=== PATIENT | male | born 1965 | race Caucasian/White ===

== ENCOUNTER 2017-11-20 11:49 | Inpatient (IN) ==
--- NOTE | 2017-11-20 08:06 | Physician Discharge Referral ---
Home Health/Hosp Referral Info Transfer to: Home Health Attending Provider: Dr Napoles - Diagnosis (1) Arthritis of left shoulder region Priority: Primary Status: Chronic (2) HTN (hypertension) Priority: Secondary Status: Chronic (3) Diabetes mellitus Priority: Secondary Status: Chronic (4) SVT (supraventricular tachycardia) Priority: Secondary Status: Chronic (5) Status post replacement of left shoulder joint Priority: Primary (ECLIPSE) Status: Acute - Respiratory Orders Smoking Cessation: Smoking cessation has been advised. For more information, call the [employer] Tobacco Quit Line at 6-340-YDJH-NOW. - Dressing/Wound Care Site: LEFT SHOULDER Type of Dressing/Treatments w/Frequency: Opsite placed. Keep dressing intact until first follow up appointment. If > 50% saturated, notify office, remove dressing and place appropriate dressing back in place. Leave Zipline intact. Opsite dressing is water resistant, not water- proof. OK to shower, but do not get dressing wet. - Diet/Nutrition Diet/Nutrition Orders: Regular - Activity Activity Orders: Up ad gardenia, Ambulate, Chair - Services Needed Following services are medically necessary services: Nursing, Home Health Aide, Physical Therapy, Occupational Therapy Home Care Orders: PT/OT elbow, wrist, hand and ADL retraining ONLY - NO SHOULDER MOTION. NWB to affected upper extremity. Follow Shoulder Precautions x 6 weeks. Stay in brace. ICE extremity frequently throughout the day. - Transfer Medications Prescriptions: OxyCODONE Immed Rel [Roxicodone 5 MG] 5 mg PO Q4HR PRN 5 Days #20 tablet PRN Reason: Pain Home Medications: Glimepiride [Amaryl] 2 mg PO BID 03/11/16 [History] Metformin HCl [Fortamet] 500 mg PO DAILY 03/11/16 [History] Fenofibrate Nanocrystallized [Triglide] 160 mg PO DAILY 07/20/17 [History] Lisinopril-HCTZ 20-12.5 [Prinzide 20-12.5] 1 tab PO DAILY 07/20/17 [History] OxyCODONE Immed Rel [Roxicodone 5 MG] 5 mg PO Q4HR PRN 5 Days #20 tablet [Rx] Allergies/Adverse Reactions: 3 Allergy/AdvReac Type Severity Reaction Status Date / Time No Known Allergies Allergy Verified 11/20/17 13:00 Certification: Further, I certify that my clinical findings support that this patient is homebound (i.e. absences from home require considerable and taxing effort and are for medical reasons or pentecostal services or infrequently or short duration when for other reasons) because: Homebound Reason: Post-surgery restriction and or conditions limit ability to leave home Attestation: My signature below is to certify that this patient is under my care and that I, or nurse practitioner, or a physician real estate administrative assistant working with me, has a face-to- face encounter with this patient.
--- NOTE | 2017-11-20 11:58 | History & Physical Report ---
Date of Encounter: 11/20/17 Time of Encounter: 11:58 24 Hour HP Update - Instructions Instructions: If the History and Physical is less than 30 days old and was completed prior to A.M. admission and or procedure and has NOT been updated on calendar day of procedure please complete this update prior to performing procedure. - Update Patient reports changes in Medical Condition: No Changes in examination, assessment, or condition: No Changes in Medication: No Preop tests/diagnostics Reviewed: Yes Surgery Remains Indicated: Yes Consent for Planned Operative Procedure(s) Verified: Yes - Pre-Operative Checklist Preoperative Checklist Indicated: No Prophylactic Antibiotic Ordered: Yes Is VTE Prophylaxis Indicated?: Yes
[2017-11-20] MEDS ORDERED: *HR* OxyCODONE Immed Rel 5 MG TABLET PO PRN ×3 (12:28→17:42)
[2017-11-20] MEDS ORDERED: *HR* Promethazine 25 MG/ML VIAL IVP PRN (12:28)
[2017-11-20] MEDS ORDERED: MORPHINE SUL Oral CONC 10 MG/0.5 ML ORAL.SYG SL PRN (12:28)
[2017-11-20] MEDS ORDERED: *HR* Labetalol 20 MG/4 ML SYRINGE IVP PRN (12:28)
[2017-11-20] MEDS ORDERED: CeFAZolin Syr 2,000MG/20 ML 2,000 MG/20 ML SYRINGE IVPB ONE (12:32)
[2017-11-20] MEDS ORDERED: Plasma-Lyte A (PH 7.4) 1,000 ML IVC SCH (12:45)
--- NOTE | 2017-11-20 12:50 | Anesthesia Evaluation PreOp ---
Date of Encounter: 11/20/17 Time of Encounter: 12:48 - Past History Planned Operation: Left Total Shoulder Cardiac History: HTN, Arrhythmia (Cardiac Ablation for SVT) Pulmonary History: Denies Any Significant HX IRONER MACHINE History: Denies Any Significant HX Other Medical History: Diabetes Type II Anesthesia History: No Prior Anesthetic Complications Alcohol Use: none Drug use: none Medications and Allergies Diltiazem CD (24hr) [Cardizem CD] 120 mg PO DAILY 03/11/16 [History] Glimepiride [Amaryl] 2 mg PO BID 03/11/16 [History] Metformin HCl [Fortamet] 500 mg PO DAILY 03/11/16 [History] Fenofibrate Nanocrystallized [Triglide] 160 mg PO DAILY 07/20/17 [History] Lisinopril-HCTZ 20-12.5 [Prinzide 20-12.5] 1 tab PO DAILY 07/20/17 [History] Multivit-Min/Folic/Vit K/Lycop [Hm Mens 50+ Advanced One Daily] 1 tab PO DAILY 07/20/17 [History] 3 Allergy/AdvReac Type Severity Reaction Status Date / Time No Known Allergies Allergy Verified 07/20/17 10:56 - Meds/Allergy Pre-op Review Medications Reviewed: Yes Allergies Reviewed: Yes Beta Blockers on Current Med List: No Anesthesia Results - Labs Laboratory Tests 03/06/16 11/18/17 11/18/17 12:55 15:38 15:38 WBC 8.4 Hgb 14.1 Hct 44.0 Plt Count 273 INR 1.1 Sodium 134 L Potassium 4.4 Chloride 101 Carbon Dioxide 27 BUN 19 Creatinine 1.49 H Anesthesia Exam O2 Sat Height 1.85 m Height 1.85 m Weight 116.573 kg Weight 116.573 kg O2 Sat by Pulse Oximetry 98 Vital Signs Temp Pulse Resp BP Pulse Ox 98.1 F 81 18 118/81 98 11/20/17 12:13 11/20/17 12:13 11/20/17 12:13 11/20/17 12:13 11/20/17 12:13 NPO (# of Hours): > 8 Hrs Pain Scale: 0 Pain Scale Used: Numeric (1 - 10) - HEENT Pupil (Motor): Pupils equal, EOMI Mallampati: II Teeth: Normal Oral Opening: Greater than 3 - IRONER MACHINE LOC: Oriented IRONER MACHINE Motor: Normal RUE, Normal LUE, Normal RLE, Normal LLE, Normal Face IRONER MACHINE Sensory: Normal: RUE, LUE, RLE, LLE, Face - Cardiac Rhythm: Regular Murmur: None JVD: No Carotid Bruit: No - Pulmonary Breath Sounds: bilateral Clear Respiratory Effort: Symmetrical Anesthesia Assess/Plan ASA Score: 2 Modified Teo Scale for Level of Consciousness: Cooperative, oriented, and tranquil Anesthetic Plan: General, Regional Autologous Blood: Yes Monitoring Plan: Standard Monitors Recovery Plan: PACU
[2017-11-20] MEDS ORDERED: Albuterol 2.5 MG/3 ML NEBULIZER IH ONE (12:51)
[2017-11-20] MEDS ORDERED: Albuterol 2.5 MG/3 ML NEBULIZER ONE (12:52)
[2017-11-20] MEDS ORDERED: Bupivacaine/Clonidine Syringe 1 EACH SYRINGE ONE (13:13)
[2017-11-20] MEDS ORDERED: ROPIVACAINE HCL/PF 0.5% 30 ML VIAL ONE (13:13)
[2017-11-20] MEDS ORDERED: *HR* FentaNYL (PF) 100 MCG/2 ML VIAL ONE (13:15)
[2017-11-20] MEDS ORDERED: *HR* Propofol 200 MG/20 ML VIAL IVP ONE (13:16)
[2017-11-20] MEDS ORDERED: Lidocaine -MPF 2% 2 ML VIAL ONE (13:16)
[2017-11-20] MEDS ORDERED: *HR* Midazolam HCl 2 MG/2 ML VIAL ONE (13:16)
--- NOTE | 2017-11-20 13:31 | Discharge Summary ---
Orders not resulted at time of discharge: Pending orders 11/20/17 US anesthesia pain block [US] Routine 11/20/17 11:58 XR shoulder complete LT [XR] Routine Hemoglobin and Hematocrit [HEME] Routine Date of Encounter: 11/20/17 Time of Encounter: 17:55 - Discharge Diagnosis (1) Obesity (BMI 30.0-34.9) Priority: Secondary Status: Chronic (2) SVT (supraventricular tachycardia) Priority: Secondary Status: Chronic (3) Arthritis of left shoulder region Priority: Primary Status: Chronic (4) HTN (hypertension) Priority: Secondary Status: Chronic Qualifiers: Hypertension type: unspecified Qualified Code(s): I10 - Essential (primary ) hypertension (5) Diabetes mellitus Priority: Secondary Status: Chronic Qualifiers: Diabetes mellitus type: type 2 Diabetes mellitus chcf insulin use: unspecified termite inspector insulin use status Diabetes mellitus complication status : with unspecified complications Qualified Code(s): E11.8 - Type 2 diabetes mellitus with unspecified complications (6) Status post replacement of left shoulder joint Priority: Primary Status: Acute - Hospital Course Hospital course: Mr. Hickman is a 52 year old male Status post left total shoulder discharged home same day - Time Spent with Patient Total time spent providing and/or coordinating discharge services: - Discharge Medications Home Medications: Glimepiride [Amaryl] 2 mg PO BID 03/11/16 [History] Metformin HCl [Fortamet] 500 mg PO DAILY 03/11/16 [History] Fenofibrate Nanocrystallized [Triglide] 160 mg PO DAILY 07/20/17 [History] Lisinopril-HCTZ 20-12.5 [Prinzide 20-12.5] 1 tab PO DAILY 07/20/17 [History] OxyCODONE Immed Rel [Roxicodone 5 MG] 5 mg PO Q4HR PRN 5 Days #20 tablet [Rx] Allergies/Adverse Reactions: 3 Allergy/AdvReac Type Severity Reaction Status Date / Time No Known Allergies Allergy Verified 11/20/17 13:00 Primary care physician: Cristóbal Land - Patient Status Disposition: Home, Self-Care Condition: Good Functional capacity at discharge: independent ambulation Overall status at discharge: patient is progressing back to baseline - Discharge Instructions Follow Up With: Cristóbal Land MD [Primary Care Provider] -
--- NOTE | 2017-11-20 13:36 | Anesthesia Procedures ---
Date of Encounter: 11/20/17 Time of Encounter: 13:23 Procedures: Anesthesia - Nerve Block Procedure Date: 11/20/17 Time: 13:23 Allergies/Adv Reactions: None Pre-op Diagnosis: Left shoulder arthritis Surgical Procedure: Left total shoulder Checklist: Correct Patient Identifier, Correct procedure, History checked Correct side: Left Blood Thinner: No Monitor Applied: EKG, BP, Pulse Oximetry Supplemental Oxygen via Nasal Cannula (L/min): 2 Sedation: Versed (mg): 2 Sedation: Fentanyl (mcg): 100 Indication: Post Op Analgesia Pre-op Neuro Deficits: No Block Type: Supraclavicular, Other (intercostobrachial, intermediate cervical plexus) Catheter placed: No Sterile Technique: Yes Ultrasound used: Yes Anatomy identified: Yes Visual spread of Local: Yes Neuro Stimulation: No Blood on Needle Aspiration: No Smooth Injection of Local: Yes Pain with Injection of Local: No Prep: Chlorhexadine Needle: 22 x 50 mm Stimuplex Local: 0.25% Bupivicaine w/Clonidine 20 mcg/cc (10ml), Ropivacaine (30ml) Number of Attempts: 1 Complications: None/effective block Vitals: Vital Signs/O2 Sat/Glucose, Most Recent Temp Pulse Resp BP Pulse Ox 98.1 F 94 18 136/98 98 11/20/17 12:13 11/20/17 13:31 11/20/17 13:31 11/20/17 13:31 11/20/17 13:31 Blood Glucose* 111
[2017-11-20] MEDS ORDERED: Dexamethasone 4 MG/ML VIAL ONE (14:27)
[2017-11-20] MEDS ORDERED: Ondansetron 4 MG/2 ML VIAL ONE (14:27)
[2017-11-20] MEDS ORDERED: *HR* PHENYLEPHRINE 1,000 MCG/10 ML SYRINGE IVP ONE (14:51)
--- NOTE | 2017-11-20 15:51 | Orthopedic Operative Note ---
Date of procedure: 11/20/17 Pre-op diagnosis: Left shoulder arthritis Post-op diagnosis: other (Posterior instability) Procedure: Procedure: Left Total Shoulder Replacement Estimated blood loss: 200 cc Hardware:Arthrex eclipse glenoid: Extra large keeled glenoid humeral head 53 x 22 eclipse Arthrex, 40 mm large Hollow screw, 53 mm trunnion 4 Arthrex 4.75 swivel lock suture anchors Exam Under anesthesia: Patient with full motion no gross instability. Procedural Notes: Patient noted to have grade 4 changes humeral head and glenoid socket. Intraoperative patient had posterior instability after implantation. Patient had appropriate size head. Posterior capsular sutures were placed to help tighten the posterior aspect. Operative procedure: The patient was brought to the operating room and placed on the operating room table. After general anesthesia was administered the operative shoulder was examined. Findings were noted. The patient was placed in the modified beachchair position. All pressure points were padded appropriately. And the head was stabilized in the neutral position. The operative extremity was prepped and draped in the sterile surgical fashion. The patient received IV antibiotics prior to skin incision. A standard deltopectoral approach was made to the operative shoulder. Incision was made to the skin and subcutaneous tissue,hemo stasis was obtained with Bovie cautery. Using careful blunt dissection the cephalic vein was identified and mobilized medially. The deltopectoral interval was developed and the clavipectoral fascia was incised. The subscap was released off the lesser tuberosity and tagged with #2 FiberWire suture. The humerus was dislocated osteophytes were present were removed and the humeral cut was made along the anatomic neck. Patient noted to have grade 4 arthritic changes humeral head. Anterior and posterior Bankart retractors were placed to expose the glenoid. Glenoid noted to have grade 4 arthritic changes. The glenoid guide was seated and the centering hole was made. It was reamed with the appropriate reamer. The finishing guide was seated superior and inferior drill holes were placed. Patient punch was seated trial was seated had good fit and fixation. The large keeled glenoid component was cemented in place held with digital pressure until cemented hardened. Component had good fit and fixation. The humerus was prepared with the sizer followed by the guidepin to a size 40 trial trunnion was seated had had good motion posterior instability. Patient felt to have appropriate version as well as appropriate head size. #2 FiberWire sutures were used to tighten up the posterior capsule this provided improved stability. The real trunnion was seated and locked in place with the 40 mm Hollow screw. We will have was seated and secured patient good motion and stability. 4 #2 fiber tape sutures were placed in the subscap in a Seb- Gilberto fashion. These were used to repair the subscap to the lesser tuberosity with 4 4.75 swivel lock suture anchors. The rotator interval was closed in a [id number] #1 Vicryl suture. Deep tissue was irrigated and closed. The deltopectoral interval was closed with a running #1 PDS suture, subcutaneous tissue was irrigated and closed with 0 PDS suture, the skin was closed with Dermabond. The patient was placed in a sterile dressing, abduction brace and extubated. The patient was then transferred to the recovery room in stable condition. Anesthesia: SCOOTER Surgeon: Jacky Napoles Was there an activity assistant present: No Estimated blood loss (cc): 200 Condition: stable Disposition: PACU
[2017-11-20 16:38] LABS: Hematocrit 39.4 % (37.5-50.1); Hemoglobin 13.1 g/dL (12.9-16.9)
--- NOTE | 2017-11-20 16:52 | Anesthesia Evaluation Post Op ---
Date of Encounter: 11/20/17 Time of Encounter: 16:51 - Vital Signs Vital Signs: Vital Signs/O2 Sat, Most Current Temp Pulse Resp BP Pulse Ox 97.0 F L 75 119 119/83 96 11/20/17 16:40 11/20/17 16:40 11/20/17 16:40 11/20/17 16:40 11/20/17 16:40 - Lungs Lungs: Clear Ascult./Percussion - Airway Airway: Non-obstructed - Cardiovascular Regular Rate - Mental Status Mental Status: Alert & Oriented, Answers Appropriately - Pain Pain Scale: 0 Pain Scale used: Numeric (1 - 10) - Nausea Vomiting Nausea Vomiting: Not Present - Hydration Hydration: Ice chips, Has not voided - Discharge PostOp Status: Transfer Patient to floor
[2017-11-20] MEDS ORDERED: Temazepam 15 MG CAPSULE PO PRN (17:42)
[2017-11-20] MEDS ORDERED: *HR* Dextrose 50 % in Water (Syg) 50 ML SYRINGE IVP PRN (17:42)
[2017-11-20] MEDS ORDERED: Insulin LISPRO 300 UNITS/3 ML VIAL SQ SCH ×2 (17:42→21:00)
[2017-11-20] MEDS ORDERED: MOM Conc 10 ML UD.LIQ PO PRN (17:42)
[2017-11-20] MEDS ORDERED: Sennosides 8.6 MG TABLET PO PRN (17:42)
[2017-11-20] MEDS ORDERED: Dextrose Gel 15 GM/37.5 ML TUBE PO PRN ×2 (17:42)
[2017-11-20] MEDS ORDERED: D5% in Water 1,000 ML IVC PRN (17:42)
[2017-11-20] MEDS ORDERED: Naloxone 0.4 MG/ML INJ IVP PRN (17:42)
[2017-11-20] MEDS ORDERED: CeFAZolin Premix DUPLEX 2,000 MG/50 ML BAG IVPB SCH (17:42)
[2017-11-20] MEDS ORDERED: Ringers Solution, Lactated 1,000 ML IVC SCH (17:42)
[2017-11-20] MEDS ORDERED: Ondansetron 4 MG/2 ML VIAL IVP PRN (17:42)
[2017-11-20] MEDS ORDERED: *HR* Enoxaparin 30 MG/0.3 ML SYRINGE SQ SCH ×2 (18:00)
[2017-11-20 18:56] VITALS: BP 127/78
[2017-11-20] MEDS ORDERED: *HR* Glimepiride 2 MG TABLET PO SCH (21:00)
[2017-11-21] MEDS ORDERED: Fenofibrate 54 MG TABLET PO SCH (09:00)
[2017-11-21] MEDS ORDERED: Lisinopril-HCTZ 20-12.5mg TABLET PO SCH (09:00)
[2017-11-21] MEDS ORDERED: *HR* Metformin 500 MG TABLET PO SCH (09:00)
== END 2017-11-20 19:57 | disposition home or self-care (01) | DRG 483 ==
LOC: SAMDAY 11:49 → 3NENU 17:28
PROVIDERS: ADMIT Orthopaedic Surgery; ATTEND Orthopaedic Surgery